=== PATIENT | male | born 1950 | race Caucasian/White ===

== ENCOUNTER 2022-05-01 08:38 | Emergency (ER) | payer MEDICARE, OTHER ==
[~2022-05-01] VITALS: Ht 188 cm; Wt 90.7 kg
[2022-05-01 11:03] LABS: Influenza A, PCR NEGATIVE (NEGATIVE); Influenza B, PCR NEGATIVE (NEGATIVE); Resp Syncytial Virus, PCR NEGATIVE (NEGATIVE)
[2022-05-01 11:05] LABS: SARS-Cov-2 (COVID-19) PCR, MMC POSITIVE (NEGATIVE)
== END 2022-05-01 11:40 | disposition home or self-care (01) ==
LOC: ER 08:38
PROVIDERS: Physician Assistant
DX: U07.1 COVID-19 (principal); J44.9 Chronic obstructive pulmonary disease, unspecified; F17.200 Nicotine dependence, unspecified, uncomplicated
CPT/HCPCS: 0241U; 71046

== ENCOUNTER 2024-08-19 11:11 | Inpatient (IN) | payer MEDICARE, OTHER ==
[~2024-08-19] VITALS: Ht 188 cm; Wt 73.3 kg
[2024-08-19] MEDS ORDERED: ALBUTEROL HFA 90 MCG (11:28)
[2024-08-19] MEDS ORDERED: ASPI81CH PO (11:28)
[2024-08-19 12:06] LABS: BASOPHILS ABSOLUTE AUTO 0.03 K/mm3 (0.00-0.23); BASOPHILS PERCENT AUTO 0 % (0-2); EOSINOPHILS ABSOLUTE AUTO 0.01 K/mm3 (0.00-0.68); EOSINOPHILS PERCENT AUTO 0 % (0-6); Hematocrit 47.5 % (37.0-53.0); Hemoglobin 16.5 g/dL (13.5-17.5); IMMATURE GRAN ABSOLUTE AUTO 0.14 K/mm3 (0.00-0.10); IMMATURE GRAN PERCENT AUTO 1 % (0-1); International Normalized Ratio 1.71; LYMPHOCYTES ABSOLUTE AUTO 0.29 K/mm3 (0.84-5.20); LYMPHOCYTES PERCENT AUTO 3 % (21-46); MONOCYTES ABSOLUTE AUTO 0.62 K/mm3 (0.16-1.47); MONOCYTES PERCENT AUTO 6 % (4-13); Mean Corpuscular HGB 32.4 pg (26.0-34.0); Mean Corpuscular HGB Conc 34.7 g/dL (31.5-36.5); Mean Corpuscular Volume 93 fL (80-100); NEUTROPHILS ABSOLUTE AUTO 9.46 K/mm3 (1.96-9.15); NEUTROPHILS PERCENT AUTO 90 % (41-73); Prothrombin Time Results 17.6 Sec (9.7-11.5); RDW Coefficient Variation 12.1 % (11.7-14.2); RDW Standard Deviation 41.7 fL (35.1-46.3); White Blood Cell Count 10.55 K/mm3 (4.00-11.30)
[2024-08-19 12:18] LABS: Albumin, Blood 3.5 g/dL (3.4-5.0); Albumin/Globulin Ratio 0.9 (0.8-1.8); Calcium, Blood 8.7 mg/dL (8.5-10.1); Creatinine, Blood 1.29 mg/dL (0.60-1.20); Globulin, Blood 3.9 g/dL (2.2-4.0); Potassium, Blood 5.8 mmol/L (3.5-5.5); Total Protein, Blood 7.4 g/dL (6.4-8.2)
[2024-08-19 12:30] LABS: Mean Platelet Volume 10.2 fL (9.1-12.4); Platelet Count 260 K/mm3 (150-400)
[2024-08-19] MEDS ORDERED: NS 1,000 ML IV SCH (12:55)
[2024-08-19] MEDS ORDERED: CefTRIAXone Sodium 1,000 MG in NS 100 ML IV ONE (12:55)
[2024-08-19] MEDS ORDERED: Azithromycin 500 MG in NS 250 ML IV ONE (12:55)
--- NOTE | 2024-08-19 15:35 | NUR ---
ASSUMPTION OF CARE PT ARRIVED TO ICU5, TRANSPORTED BY ED RN. REPORT GIVEN TO THIS RN VIA PHONE BY STEVE RAMOS. PT A&OX4, ABLE TO COMMUNICATE APPROPRIATELY AND MAKES NEEDS KNOWN. ON ARRIVAL TO ROOM, PT REQUESTED TO USE THE BATHROOM. PT AMBULATES WITH MINIMAL STAND-BY ASSIST TO ROOM TOILET. URINE NOTED TO BE PINK TINGED. PT HAS HX OF PROSTATE CA AND HAS KNOWN THIS FOR ABOUT 2YEARS, PER PRIOR RN. PT SBP 130S. HR 80S-100S, IRREGULAR, ACTIVITY DEPENDENT. DENIES CHEST PAIN. ENDORSES SOB. PT TRIPODING. LUNGS DIMINISHED T/O, ESPECIALLY IN LLL. CRACKLES HEARD IN BILAT LOWER LOBES. SATS LABILE, UNABLE TO GET GOOD READ DUE TO PTS COLD EXTREMITIES. NOSE NOTED TO BE PURPLE. PER PT, HE DOES NOT HAVE PRESCRIBED O2 AT HOME. HE USES HIS 'S CONCENTRATOR OCCASSIONALLY ON "VERY LITTLE" SETTINGS. SHALLOW BREATHING NOTED. LLE NOTED TO BE COLD TO THE TOUCH, LEFT FOOT BLUISH/PURPLE. PULSES HEARD VIA DOPPLER. NO PAIN REPORTED.
[2024-08-19] MEDS ORDERED: Albuterol 2.5 MG/3 ML VIAL INH PRN (15:45)
[2024-08-19 15:50] VITALS: BP 130/74
--- NOTE | 2024-08-19 15:58 | NUR ---
DR JACKSON IN ROOM ASSESSING PT.
[2024-08-19] MEDS ORDERED: NS 500 ML IV SCH (16:00)
[2024-08-19] MEDS ORDERED: FLU VACC TS2024-25(6MOS UP)/PF 45 MCG/0.5 ML SYRINGE IM ONE (16:00)
--- NOTE | 2024-08-19 16:30 | NUR ---
PT UPDATE: PT GETTING ECHO IN ROOM.
[2024-08-19] MEDS ORDERED: Mometasone/Formoterol MDI 200/5 mcg 13 GM INH SCH (16:45)
[2024-08-19] MEDS ORDERED: Albuterol HFA200 ACT/6.7 GM INH INH PRN (16:45)
[2024-08-19] MEDS ORDERED: Tiotropium Bromide 2.5 MCG/ACT MIST INHAL (10 ACT/4 GM) INH SCH (16:45)
[2024-08-19 17:21] VITALS: BP 134/76
--- NOTE | 2024-08-19 18:18 | NUR ---
PT TO CT FOR PE STUDY
[2024-08-19 18:38] VITALS: BP 134/70
--- NOTE | 2024-08-19 18:38 | NUR ---
PT BACK TO ICU [address] ESCORTED BY G[employer] [employer] WINDER
--- NOTE | 2024-08-19 18:49 | NUR ---
END OF SHIFT SUMMARY PT REMAINS A&OX4. APPEARS VERY SLEEPY. IN AND OUT OF SLEEP.AROUSES TO LOUD VOICE AND TOUCH. PT IS HARD OF HEARING. HR REMAINS 80S- LOW 100S, CONTINUES TO RISE W/ ACTIVITY. HR IRREG. SBP 130S. MAP 80S. PT ON 3L O2 VIA NC, SATS >90%. RESP 20S. LAST KNOWN BM PER PT WAS THIS MORNING. NO PAIN REPORTED THIS SHIFT. SCD ON RLE. PT AMBULATES TO TOILET W/STANDBY ASSIST. CALL LIGHT WITHIN REACH. WILL REPORT TO ONCOMING SHIFT.
[2024-08-19 19:55] LABS: Calcium, Blood 8.4 mg/dL (8.5-10.1); Creatinine, Blood 1.13 mg/dL (0.60-1.20); Potassium, Blood 5.3 mmol/L (3.5-5.5)
[2024-08-19 20:00] VITALS: BP 128/73
[2024-08-19 20:38] VITALS: BP 128/73
[2024-08-19 21:49] LABS: Base Excess Venous 5.5 mmol/L; Bicarbonate Venous 25.4 mmol/L (24.0-30.0); PCO2 Venous 81.8 mmHg (38-42); pH Blood Venous 7.22 (7.34-7.37)
[2024-08-19 22:14] LABS: Influenza A, PCR NEGATIVE (NEGATIVE); Influenza B, PCR NEGATIVE (NEGATIVE); Resp Syncytial Virus, PCR NEGATIVE (NEGATIVE); SARS-Cov-2 (COVID-19) PCR, MMC NEGATIVE (NEGATIVE)
[2024-08-19] MEDS ORDERED: LORazepam 2 MG/ML 1ML Injection IV ONE (22:35)
--- NOTE | 2024-08-19 22:52 | NUR ---
ASSUMPTION OF CARE ASSUMED CARE OF PATIENT AT 1900, BEDSIDE SHIFT REPORT RECEIVED FROM KAREN RN. PT RESTING IN BED, SLEEPING, DIFFICULT TO AROUSE. PT OPENS EYES WITH PHYSICAL STIMULATION. PT NODS/SHAKES HIS HEAD TO ANSWER QUESTIONS, DOES NOT RESPOND VERBALLY. PT MENTATION INCONSISTENT WITH REPORT RECEIVED FROM KAREN RN. PT MORE LETHARGIC, CONCERNS CALLED TO DR. BENSON REGARDING PT MENTATION, DR. BENSON TO THE BEDSIDE FOR ASSESSMENT, ORDERS RECEIVED FOR VBG AND COVID/FLU SWAB. CRITICAL RESULT RECEIVED FROM VBG, CALL PLACED TO REGARDING RESULTS, ORDER RECEIVED FOR BIPAP. PT NOT TOLERATING THE BIPAP, CONTINUOUSLY PULLING IT OFF AND BECOMING INCREASINGLY ANXIOUS, PT MEDICATED PER EMAR, NOW TOLERATING BIPAP MASK AT THIS TIME, BIPAP SETTINGS 14/8 35%, OXYGEN SATURATION >92%. PT MOVING EXTREMITIES EQUALLY BILATERALLY. HR 80-110'S IRREGULAR. MAP >65. ABDOMEN SOFT, BOWEL TONES ACTIVE THROUGHOUT. PT USES URINAL TO VOID, DARK JOSE MARTIN/PINK TINGED URINE. PIV IN PLACE TO LEFT WRIST SL, PT PULLED IV IN RIGHT FOREARM. BED IN LOWEST POSITION, CALL LIGHT WITHIN REACH, CARE CONTINUES.
[2024-08-20 00:11] VITALS: BP 124/71
[2024-08-20 03:26] VITALS: BP 123/78
[2024-08-20 03:32] LABS: Base Excess Venous 7.2 mmol/L; Bicarbonate Venous 26.4 mmol/L (24.0-30.0); PCO2 Venous 76.2 mmHg (38-42); pH Blood Venous 7.26 (7.34-7.37)
[2024-08-20 03:52] LABS: BASOPHILS ABSOLUTE AUTO 0.03 K/mm3 (0.00-0.23); BASOPHILS PERCENT AUTO 0 % (0-2); EOSINOPHILS ABSOLUTE AUTO 0.01 K/mm3 (0.00-0.68); EOSINOPHILS PERCENT AUTO 0 % (0-6); Hematocrit 48.1 % (37.0-53.0); Hemoglobin 16.2 g/dL (13.5-17.5); IMMATURE GRAN ABSOLUTE AUTO 0.19 K/mm3 (0.00-0.10); IMMATURE GRAN PERCENT AUTO 1 % (0-1); LYMPHOCYTES ABSOLUTE AUTO 0.96 K/mm3 (0.84-5.20); LYMPHOCYTES PERCENT AUTO 7 % (21-46); MONOCYTES ABSOLUTE AUTO 0.84 K/mm3 (0.16-1.47); MONOCYTES PERCENT AUTO 6 % (4-13); Mean Corpuscular HGB 32.4 pg (26.0-34.0); Mean Corpuscular HGB Conc 33.7 g/dL (31.5-36.5); Mean Corpuscular Volume 96 fL (80-100); Mean Platelet Volume 9.8 fL (9.1-12.4); NEUTROPHILS ABSOLUTE AUTO 12.16 K/mm3 (1.96-9.15); NEUTROPHILS PERCENT AUTO 86 % (41-73); Platelet Count 284 K/mm3 (150-400); RDW Coefficient Variation 12.4 % (11.7-14.2); RDW Standard Deviation 44.1 fL (35.1-46.3); White Blood Cell Count 14.19 K/mm3 (4.00-11.30)
[2024-08-20 04:31] LABS: Albumin, Blood 3.3 g/dL (3.4-5.0); Albumin/Globulin Ratio 0.9 (0.8-1.8); Bilirubin, Total 1.1 mg/dL (0.1-1.0); Bun/Creatinine Ratio 27.7 (12.0-20.0); Calcium, Blood 8.3 mg/dL (8.5-10.1); Creatinine, Blood 1.3 mg/dL (0.60-1.20); Globulin, Blood 3.6 g/dL (2.2-4.0); Potassium, Blood 5.7 mmol/L (3.5-5.5); Total Protein, Blood 6.9 g/dL (6.4-8.2)
--- NOTE | 2024-08-20 05:03 | NUR ---
SHIFT SUMMARY PT CONTINUES TO REST IN BED, SLEEPING, OPENS EYES TO VERBAL STIMULI. PT MOVES EXTREMITIES EQUALLY BILATERALLY. HR 80-110'S, MAP >65. PT ON BIPAP 14/8 35%, OXYGEN SATURATION >92%. ABDOMEN SOFT, BOWEL TONES ACTIVE THROUGHOUT. PIV IN PLACE TO LFA SL. BED IN LOWEST POSITION, CALL LIGHT WITHIN REACH, CARE CONTINUES.
[2024-08-20] MEDS ORDERED: Furosemide 10 MG/ML 4ML Vial IV ONE (07:00)
[2024-08-20 08:00] VITALS: BP 115/69
[2024-08-20] MEDS ORDERED: Enoxaparin 30 MG/0.3 ML SYR SC SCH (09:00)
--- NOTE | 2024-08-20 10:00 | NUR ---
AM NOTE... ASSUMED CARE OF PT AT 0700, PT IS A&Ox4 SBA TO THE BSC. PT WAS ON BIPAP AT 14/8 AND 35% WITH O2 SATS>95% L/S VERY DIM AND COARSE T/O. PT WAS CHANGED FROM BIPAP TO NC AT 6L WITH O2 SATS>90%. THE BIPAP WAS REMOVED PER PT REQUEST TO GET TO THE BSC, PT IS CURRENTLY REFUSING TO PUT THE BIPAP BACK ON. PT EDUCATED ON THE WHY THE PT WAS ON THE BIPAP AND HOW THE BIPAP IS HELPING HIM GET BETTER. PT VERBALIZED HIS UNDERSTANDING BUT STILL REFUSED. PT IS IN SA IN THE 100'S-110'S. BP IS STABLE MAPS>65. PT'S LLE HAS 2+ EDEMA PULSES ARE PALPABLE. PT DENEIS PAIN DURING THIS ASSESSMENT.
[2024-08-20 10:04] LABS: Bun/Creatinine Ratio 30.1 (12.0-20.0); Calcium, Blood 8.4 mg/dL (8.5-10.1); Creatinine, Blood 1.23 mg/dL (0.60-1.20); Potassium, Blood 5.2 mmol/L (3.5-5.5)
[2024-08-20] MEDS ORDERED: Ipratropium/Albuterol SulF 2.5-0.5MG/3 ML Amp INH SCH (10:20)
[2024-08-20] MEDS ORDERED: MethylPREDNISolone Sod Succ 125 MG Vial IV ONE (11:00)
[2024-08-20 13:13] VITALS: BP 120/100
[2024-08-20] MEDS ORDERED: CefTRIAXone Sodium 1,000 MG in NS 100 ML IV SCH (14:00)
[2024-08-20] MEDS ORDERED: Azithromycin 500 MG in NS 250 ML IV SCH (14:00)
[2024-08-20] MEDS ORDERED: Furosemide 10 MG / ML 2ML Vial IV SCH (14:04)
[2024-08-20] MEDS ORDERED: NS 250 ML IV PRN (14:15)
--- NOTE | 2024-08-20 14:37 | NUR ---
SPOKE WITH PT'S SHER AND JOSE HORNE BY PHONE TODAY. SHER REQUESTS WE DISCUSS PT'S CONDITION WITH OZZIE WHO IS A NURSE AND STATES OZZIE WILL BE THE SPOKESPERSON. AFTER SPEAKING WITH PT'S AND KIDS, THEY COLLECTIVELY DECIDED TO CHANGE PT'S CODE STATUS TO DNR, HE HAS MADE CLEAR TO FAMILY THAT HE WOULD NOT WANT HEROIC MEASURES. SPOKE AT LENGTH WITH OZZIE REGARDING PT'S INCREASED CONFUSION, PULLING ON BIPAP MASK, AND NOW REQUIRING A PERICARDIAL EFFUSION DRAIN PLACED. ULTIMATELY, FAMILY AGREE THAT IF THE PATIENT'S CONDITION DECLINES TO ANY POINT THAT HE WOULD NEED TO BE INTUBATED, THEY WOULD AT THAT TIME CHANGE PT TO COMFORT CARE AND/OR HOSPICE. HOSPITALIST NOTIFIED, SHE WILL CHANGE CODE STATUS.
[2024-08-20 14:47] LABS: C-REACTIVE PROTEIN, EXT RANGE 4.09 mg/dL (0.000-0.300)
[2024-08-20 14:56] LABS: PCO2 Venous 85.7 mmHg (38-42); pH Blood Venous 7.27 (7.34-7.37)
[2024-08-20 14:58] LABS: C-Reactive Protein, High Sens. 39.6 mg/dL (0.000-3.000)
[2024-08-20 14:58] LABS: Base Excess Venous 12.9 mmol/L; Bicarbonate Venous 32.1 mmol/L (24.0-30.0)
--- NOTE | 2024-08-20 15:45 | NUR ---
PT UPDATE.... PT HAS HAD INCREASED LETHARGY AND SOMNOLENCE T/O THE SHIFT, AT 1500 A VBG WAS DRAWN THAT SHOWED A pH OF 7.27 AND pCO2 OF 85.7, AT 1530 PROVIDER WAS CALLED AND ORDERS FOR ATIVAN TO BE GIVEN FOR BIPAP COMPLIANCE WERE OBTAINED. AT 1540 PT WAS PLACED BACK ON BIPAP, PT WAS GIVEN 0.5MG IV ATIVAN IN ORDER TO TOLERATE THE BIPAP. BIPAP SETTINGS: 14/8 AND 35%.
[2024-08-20] MEDS ORDERED: LORazepam 2 MG/ML 1ML Injection IV PRN (16:00)
[2024-08-20] MEDS ORDERED: LORazepam 2 MG/ML 1ML Injection IV ONE (16:00)
[2024-08-20 16:02] VITALS: BP 111/79
--- NOTE | 2024-08-20 17:19 | NUR ---
SHIFT SUMMARY... PT WAS PLACED BACK ON THE BIPAP AND SETTINGS WERE CHANGED BY RT TO 16/8 AND 35% WITH O2 SATS>88%. L/S CONTINUE TO BE VERY DIM T/O. PT DOES WELL ON THE BIPAP WITH 0.5MG IV ATIVAN. A CONDOM CATH WAS PLACED. PT'S SON DIVINA WAS UPDATED ON THE PT'S CONDITON AND PLAN OF CARE. PT WAS CHANGED FROM A FULL CODE TO A DNR.
[2024-08-20] MEDS ORDERED: MethylPREDNISolone Sod Succ 125 MG Vial IV SCH (18:00)
[2024-08-20 20:00] VITALS: BP 103/73
[2024-08-21] VITALS (21 sets, daily range): BP systolic 88–132; BP diastolic 43–83
[2024-08-21] MEDS ORDERED: dexmedeTOMIDine 100 ML IV SCH (00:40)
[2024-08-21 03:28] LABS: Base Excess Venous 11.4 mmol/L; Bicarbonate Venous 32.3 mmol/L (24.0-30.0); PCO2 Venous 63.8 mmHg (38-42); pH Blood Venous 7.37 (7.34-7.37)
[2024-08-21 03:32] LABS: BASOPHILS ABSOLUTE AUTO 0.01 K/mm3 (0.00-0.23); BASOPHILS PERCENT AUTO 0 % (0-2); EOSINOPHILS PERCENT AUTO 0 % (0-6); Hemoglobin 15.2 g/dL (13.5-17.5); IMMATURE GRAN ABSOLUTE AUTO 0.05 K/mm3 (0.00-0.10); IMMATURE GRAN PERCENT AUTO 1 % (0-1); LYMPHOCYTES ABSOLUTE AUTO 0.22 K/mm3 (0.84-5.20); LYMPHOCYTES PERCENT AUTO 3 % (21-46); MONOCYTES ABSOLUTE AUTO 0.22 K/mm3 (0.16-1.47); MONOCYTES PERCENT AUTO 3 % (4-13); Mean Corpuscular HGB 31.9 pg (26.0-34.0); Mean Corpuscular Volume 96 fL (80-100); Mean Platelet Volume 9.7 fL (9.1-12.4); NEUTROPHILS ABSOLUTE AUTO 8.19 K/mm3 (1.96-9.15); NEUTROPHILS PERCENT AUTO 94 % (41-73); Platelet Count 284 K/mm3 (150-400); RDW Coefficient Variation 12.3 % (11.7-14.2); RDW Standard Deviation 43.9 fL (35.1-46.3); Red Blood Cell Count 4.77 M/mm3 (4.30-5.90); White Blood Cell Count 8.69 K/mm3 (4.00-11.30)
[2024-08-21 04:03] LABS: Albumin, Blood 3.1 g/dL (3.4-5.0); Bun/Creatinine Ratio 44.5 (12.0-20.0); Calcium, Blood 8.2 mg/dL (8.5-10.1); Creatinine, Blood 0.92 mg/dL (0.60-1.20); Globulin, Blood 3.2 g/dL (2.2-4.0); Potassium, Blood 5.2 mmol/L (3.5-5.5); Total Protein, Blood 6.3 g/dL (6.4-8.2)
[2024-08-21 05:14] LABS: Magnesium, Blood 2.7 mg/dL (1.6-2.4)
--- NOTE | 2024-08-21 06:18 | NUR ---
SHIFT SUMMARY: PT WAS FAIRLY SOMNOLENT AT THE BEGINNING OF SHIFT AND WEARING BIPAP. WHEN ATIVAN WORE OFF HE BECAME AGITATED AND WAS NO LONGER TOLERATING BIPAP. PT DESATURATES QUICKLY WHEN OFF BIPAP. PRECEDEX WAS STARTED AND PATIENT WAS ABLE TO TOLERATE BIPAP FOR REST OF SHIFT. HE ALSO SEEMED TO SLEEP FOR SEVERAL HOURS. IN SINUS ARRHYTHMIA WITH A STABLE BLOOD PRESSURE. PT HAS BEEN NPO ALL SHIFT, MAG AND POTASSIUM WITHIN RANGE PER DR BROWER FOR PROCEDURE TODAY.
[2024-08-21] MEDS ORDERED: Thiamine HCl 100 MG Tab PO SCH (09:00)
--- NOTE | 2024-08-21 10:00 | NUR ---
REQUESTED A BREAK FROM BIPAP. PT PLACED ON 4LPM VIA NASAL CANNULA SATS REMAIN ABOVE 95% DENIES SOB OR PAIN AT THIS TIME. C/O DRY MOUTH, ORAL CARE PROVIDED. PT REMAINS NPO IN ANTICIPATION FOR HEART CATH AND PERICARDIALCENTESIS TODAY. PROVIDED SHER AN UPDATE THIS MORNING. MENTATION IMPROVED SINCE 0800. ALERT AND ORIENTED TO SELF AND PLACE. HAD BEEN TOLERATED BIPAP WELL ON 0.3MCG/KG/HR PRECEDEX.
--- NOTE | 2024-08-21 12:52 | NUR ---
PATIENT PLACED BACK ON BIPAP, RR INCREASED FROM 16-17 TO 21-22 WHILE ON NASAL CANNULA SPO2 REMAINED ABOVE 95% HR 59-60S. REDUCED PRECEDEX TO 0.2MCG/KG/HR.
--- NOTE | 2024-08-21 13:39 | NUR ---
SPOKE WITH PT'S JOSE HORNE BY PHONE THIS MORNING. UPDATED HER ON PT'S CONDITION AND PENDING PROCEDURES. SHE STATES THE PT'S SON JOSEFA IS TRAVELING TO COME AND SEE HIS DAD, SHOULD BE ARRIVING THIS EVENING. THE FAMILY ARE LEANING TOWARDS HOSPICE, BUT FOR NOW WANT TO CONTINUE OPTIMIZING THE PATIENT.
--- NOTE | 2024-08-21 14:59 | NUR ---
PATIENT OFF BIPAP ON 4LPM VIA NC FOR APPROX 20MIN. TOOK A COUPLE SIPS OF WATER TOLERATED WELL. RR INCREASED DURING THIS TIME AND PATIENT BECAME SOB. C/O PAIN WHEN COUGHING TO LL [place] REPORTED SOME MINIMAL HEAVINESS TO HIS CHEST BUT DENIED ANY CHEST PAIN. SBP REMAINS 90-100S, MAP GREATER THAN 65. SPO2 REMAINS ABOVE 95%. FAMILY UPDATED
--- NOTE | 2024-08-21 16:53 | NUR ---
SHIFT SUMMARY PATIENT AROUSES TO VERBAL STIMULI, ORIENTED TO SELF AND OCCASIONALLY PLACE. CURRENTLY ON PRECEDEX 0.2MCG/KG/HR. FOLLOWS COMMANDS. PLESANTLY CONFUSED AND FORGETFUL. SINUS ARRYTHMIA WITH FREQUENT PACS. SBP 90-110S, MAP >65 HR 60S. LUNGS: COARSE/DIM ON RML,RLL. ON BIPAP 16/8 35% TOLERATING WELL. SATS REMAIN >95% +COUGH, NON PRODUCTIVE. GI: ABDOMEN IS SOFT/NONTENDER WITH NORMOACTIVE BOWEL TONES : URINARY RETENTION, STRAIGHT CATH COMPLETED. MOVE EXTREMITIES WELL. PATIENT TOOK 3 BREAKS FROM BIPAP. 20-60MIN FOR EACH EVENT PT BECAME TACHYNPENIC AND BIPAP WAS RESTARTED. SPOKE WITH QUITE A FEW FAMILY MEMBERS TODAY. SON DIVINA SHOULD BE HERE THIS EVENING TO VISIT HE IS TRAVELING FROM [place]. FAMILY AGREEABLE TO HAVE DAUGHTER IN [employer] POINT PERSON TO NOTIFY FOR UPDATES AND SHE WILL NOTIFY OTHER MEMEBERS OF THE FAMILY
[2024-08-21] MEDS ORDERED: Lactobacil 2-S.Thermo-Bifido 1 1 Cap PO SCH (21:00)
[2024-08-22] VITALS (11 sets, daily range): BP systolic 96–142; BP diastolic 63–86
[2024-08-22 03:20] LABS: PCO2 Venous 56.3 mmHg (38-42); pH Blood Venous 7.42 (7.34-7.37)
[2024-08-22 03:21] LABS: Base Excess Venous 12.3 mmol/L; Bicarbonate Venous 33.7 mmol/L (24.0-30.0)
[2024-08-22 03:39] LABS: BASOPHILS ABSOLUTE AUTO 0.01 K/mm3 (0.00-0.23); BASOPHILS PERCENT AUTO 0 % (0-2); EOSINOPHILS PERCENT AUTO 0 % (0-6); Hematocrit 44.2 % (37.0-53.0); Hemoglobin 14.7 g/dL (13.5-17.5); IMMATURE GRAN ABSOLUTE AUTO 0.12 K/mm3 (0.00-0.10); IMMATURE GRAN PERCENT AUTO 1 % (0-1); LYMPHOCYTES ABSOLUTE AUTO 0.28 K/mm3 (0.84-5.20); LYMPHOCYTES PERCENT AUTO 2 % (21-46); MONOCYTES ABSOLUTE AUTO 0.33 K/mm3 (0.16-1.47); MONOCYTES PERCENT AUTO 3 % (4-13); Mean Corpuscular HGB 32.5 pg (26.0-34.0); Mean Corpuscular HGB Conc 33.3 g/dL (31.5-36.5); Mean Corpuscular Volume 98 fL (80-100); Mean Platelet Volume 9.7 fL (9.1-12.4); NEUTROPHILS ABSOLUTE AUTO 12.19 K/mm3 (1.96-9.15); NEUTROPHILS PERCENT AUTO 94 % (41-73); Platelet Count 256 K/mm3 (150-400); RDW Coefficient Variation 12.4 % (11.7-14.2); RDW Standard Deviation 44.9 fL (35.1-46.3); Red Blood Cell Count 4.52 M/mm3 (4.30-5.90); White Blood Cell Count 12.93 K/mm3 (4.00-11.30)
[2024-08-22 03:55] LABS: Bun/Creatinine Ratio 54.7 (12.0-20.0); Calcium, Blood 8.3 mg/dL (8.5-10.1); Creatinine, Blood 0.9 mg/dL (0.60-1.20); Potassium, Blood 5.3 mmol/L (3.5-5.5)
--- NOTE | 2024-08-22 05:41 | NUR ---
SHIFT SUMMARY: PT HAS BEEN MORE ALERT AND TALKATIVE THIS SHIFT, THOUGH HE REQUIRES FREQUENT REPETITION AND RE-ORIENTING. HE HAS ALSO BEEN MORE IRRITABLE. HE HAS NOT WORN THE BIPAP CONSISTENTLY, BUT HAS MANAGED A FEW STRETCHES OF TIME WITH IT ON. HIS VITALS REMAIN STABLE WITH A FEW EPISODES OF BRADYCARDIA. HE HAS BEEN ON PRECEDEX GTT. HIS SON ARRIVED FROM [place] THIS EVENING AND WILL RETURN WITH THE PATIENT'S IN THE AM.
--- NOTE | 2024-08-22 07:00 | NUR ---
ASSUMPTION OF CARE PT IS AWAKE DURING BEDSIDE REPORT. HE REQUESTS BIPAP MASK TO BE TAKEN OFF AND WATER. BIPAP MASK REMOVED AND PT PLACED ON 4L NC. SPO2 90-94%. HE DENIES SOB. APPEARS TO MOSTLY BREATHING THROUGH HIS MOUTH AND STS HE NORMALLY WEARS HIS HOME O2 IN HIS MOUTH. NEW CANNULA APPLIED AND PLACED IN MOUTH. SPO2 REMAINS 90-94%. IRREGULAR RHYTHM ON MONITOR WITH RATE IN 80S. MAP >65. AFEBRILE. BED IN LOW POSITION, CALL LIGHT WITHIN REACH.
--- NOTE | 2024-08-22 09:57 | NUR ---
UPDATE PROVIDERS HAVE ROUNDED. PER PT AND FAMILY CONVERSATION WITH PROVIDER, MAIN GOAL OF CARE INCLUDES MAINTAINING COMFORT. PT'S SON CURRENTLY AT BEDSIDE VISITING. PT HAS BREAKFAST TRAY.
--- NOTE | 2024-08-22 15:15 | NUR ---
UPDATE PT CHANGED TO MEDICAL STATUS THIS AM. PT BECOMES DYSPNEIC WITH EXERTION AND REQUESTS HIS INHALER. HE STS AT HOME HE USES HIS INHALER PRIOR TO ACTIVITY AND OFTEN AGAIN AFTER. HE IS CURRENTLY ON 6L NC. PROVIDER NOTIFIED AND PLACING ORDERS.
[2024-08-22] MEDS ORDERED: LORazepam 2 MG/ML 1ML Injection IV PRN (15:20)
[2024-08-22] MEDS ORDERED: Morphine Sulfate 20 MG/1ML 1 ML Oral Syringe SL PRN (15:20)
--- NOTE | 2024-08-22 17:50 | NUR ---
SHIFT SUMMARY PT TRANSITIONED TO MEDICAL STATUS AND COMFORT CARE THIS SHIFT. HE IS ON 4L NC. HE BECOMES DYSPNEIC WITH EXERTION. ROXANOL ADDED THIS EVENING AND PT REPORTS RELIEF OF AIR HUNGER. PT IS ALERT TO SELF AND FAMILY. HE HAS VOIDED SEVERAL TIMES THIS SHIFT. HE HAS A DECREASED APPETITE BUT HAS ATE SMALL PORTIONS OF EACH MEAL. BED IN LOW POSITION, CALL LIGHT WITHIN REACH.
--- NOTE | 2024-08-22 18:45 | NUR ---
Respiratory therapist notified this RN that the patient and family were requesting for patient to be a full code. This RN entered room to assess. Family stated that the patient was requesting full code status. Pt's son at bedside with video chat with another family member. Discussed that the plan was to discharge to hospice, which everyone emphatically agreed. Discussed incompatiablity between hospice and full code status. Discussed that part of comfort measures was providing patient with morphine for his air hunger and reported pain. Discussed decision-making impairments with morphine. Family stated that pt became upset when he saw the DNR wristband in place and this provoked this change. Wristband removed, which family stated was a satisfactory solution. Family agreeable to continue with comfort measures and eventual discharge to hospice. Discussed this interaction with primary nurse, Suzi, who stated it is most appropriate for family to continue with decision making. Also provided update to Dr Brooks who presented to the room shortly afterwards. Patient and family deny questions and express satifaction with current plan of care.
--- NOTE | 2024-08-23 07:00 | NUR ---
ASSUMPTION OF CARE PT SITTING UP IN BED. COMFORT CARE AT THIS TIME.
--- NOTE | 2024-08-23 09:39 | NUR ---
UPDATE PT SITTING UP IN RECLINER CURRENTLY. HE HAS A DECREASED APPETITE BUT ATTEMPTED TO EAT SOME OF BREAKFAST. HE IS TOLERATING FLUIDS WELL. PT HAS VOIDED MULTIPLE TIMES THIS SHIFT. CALL LIGHT WITHIN REACH.
[2024-08-23] MEDS ORDERED: CefTRIAXone 1000 MG Vial ONE (12:59)
--- NOTE | 2024-08-23 14:58 | NUR ---
TRANSFER TO 364 PT TRANSFERRED TO 364 VIA WHEELCHAIR BY PCT. HE IS ON 4L NC. ALL BELONGINGS WITH PT INCLUDING PHONE AND GLASSES. SON JOSEFA NOTIFIED OF ROOM CHANGE VIA TELEPHONE.
--- NOTE | 2024-08-23 15:20 | NUR ---
TRANSFER TO 363 FROM ICU5 PT TRANSFERED TO 363. ORIENTED TO ROOM. CALL LIGHT IN REACH. 5L O2 VIA [place] RUNNING. PT SATS HE IS NOT SOB CURRENTLY AND REFUSED ROXANOL. ICE WATER PROVIDED. DENIES OTHER NEEDS AT THIS TIME.
--- NOTE | 2024-08-23 18:14 | NUR ---
SHIFT SUMMARY PT TRANSFERED TO UNIT. MEDICATED WITH ROXANOL ONCE. PT UP IN BED, EATING DINNER. SON AT BEDSIDE. DNR WRISTBAND OUTSIDE ROOM SEEING THEM UPSETS THE PATIENT. NO OTHER ACUTE CHANGES AT THIS TIME. PT DENIES PAIN AND DENIES NEED FOR MORE ROXANOL AT THIS TIME.
--- NOTE | 2024-08-24 04:11 | NUR ---
SHIFT SUMMARY PT ALERT ORIENTED TO SELF ONLY. HE USES THE URINL AT BEDSIDE. REMAINS ON COMFORT CARE. VSS ON HES HERE TILL HE CAN BE DISCHARGED TO THE [facility]. NO C/O PAIN THIS SHIFT BUT HE DID HAVE SOME AIRHUNGER AND NEEDED A DOSE OF OXANOL. RESTING IN BED AT THIS TIME WITH A CALL LIGHT IN [facility]
--- NOTE | 2024-08-24 15:29 | NUR ---
PATIENT SITTING UP IN BED TODAY, WEARING 02 VIA N/C AND DOES NOT APPEAR DISTRESSED. HE IS ON COMFORT CARE, AND PLAN IS FOR PATIENT TO D/C WITH HOSPICE TO EITHER THE [facility] AT [facility], OR ONE OF THE OTHER LONG-TERM CARE FACILITIES WHO CONTRACT WITH THE [place]. THE PATIENT IS AGREEABLE TO THIS, IS FAMILY. PT'S SON JOSEFA WAS AT PT'S BEDSIDE FOR THE MAJORITY OF THE DAY. REFERRALS BEING SENT TO FACILITIES. NO NEW ISSUES IDENTIFIED AT THIS TIME.
--- NOTE | 2024-08-24 16:39 | NUR ---
PATIENT A/OX2-3, CONFUSED ABOUT SITUTATION AND FORGETFUL. PATIENT UP WITH FWW AND 1PA, FALL PRECAUTIONS IN PLACE PATIENT IS VERY IMPULSIVE. POOR APETITE, BUT DRINKING WELL. SON AT BEDSIDE TODAY AND SPOKE WITH PALLIATIVE CARE. PLAN IS FOR PLACEMENT FOR HOPSICE CARE. PATIENT DENIED ANY PAIN OR DISCOMFORT. 4LO2 FOR COMFORT. NO NEW CONCERNS THIS SHIFT.
--- NOTE | 2024-08-25 03:38 | NUR ---
SHIFT SUMMARY/COMFORT CARE NOTE NO ACUTE EVENTS DURING THIS SHIFT. PT IS A/O X2, ABLE TO MAKE HIS NEEDS KNOWN AND COOPERATIVE WITH CARE. PT SITTING IN BED, HOB ELEVATED. PT HOLDING URINAL BETWEEN HIS LEGS MOST OF THIS SHIFT. OCCASIONALLY ABLE TO VOID. IMPULSIVNESS, UP FROM THE BED, REDIRECTABLE. BED ALARM FOR SAFETY. NC @ 4LITERS FOR COMFORT. PT DENIES PAIN AND DISCOMFORT. BED AT THE LOWEST POSITION, CALL LIGHT W/I REACH. FREQUENT CHECKS BY THE BEDSIDE. PT AWAKE MOST OF THIS SHIFT.
[2024-08-25] MEDS ORDERED: Furosemide 20 MG Tab PO SCH (09:00)
--- NOTE | 2024-08-25 18:49 | NUR ---
NO ACUTE CHANGES THIS SHIFT. PATIENT UP WITH FWW AND 1PA. ON COMFORT CARE, DENIES ANY PAIN OR DISCOMFORT. FALL PRECAUTIONS IN PLACE. A/OX3 THIS SHIFT, PATIENT LESS IMPULSIVE TODAY. AWAITING HOSPICE PLACEMENT AT [place], REFERRAL HAS BEEN SENT.
--- NOTE | 2024-08-26 05:59 | NUR ---
SHIFT SUMMARY NOC PT A/O X 3-4. PLEASANT AND COOPERATIVE WITH CARE. ON COMFORT CARE MEASURES. PT HAS DENIED ANY PAIN. ON 4L/NC WHICH IS NEW BASELINED DUE TO RESPIRATORY FAILURE. PT USING CALL LIGHT APPROPRIATELY AND AMBULATING WITH 1PA/FWW TO BATHROOM. PT WAITING FOR ACCEPTENCE FOR [facility]. PT CURRENTLY RESTING WITH BED ALARM ON, BED IN LOWEST POSITION, AND CALL LIGHT WITHIN REACH.
--- NOTE | 2024-08-26 17:49 | NUR ---
SHIFT SUMMARY PATIENT A/OX4, ABLE TO MAKE NEEDS KNOWN. PLEASANT AND COOPERATIVE WITH CARE. PATIENT DENIES PAIN THIS SHIFT. CONTINUES WITH 4 LPM OCXYGEN USE VIA NASAL CANNULA. ABLE TO AMBULATE TO THE BATHROOM WITH STAND BY ASSISTANCE. DRESSING TO IV CHANGED TODAY. MULTIPLE FAMILY MEMBERS AT BEDSIDE THROUGHOUT THE DAY. NO OTHER CONCERNS AT THIS TIME. PATIENT AWAITING [place] [facility] PLACEMENT.
[2024-08-26] MEDS ORDERED: Ondansetron HCl 2 MG / ML 2ML Vial IV PRN (19:40)
--- NOTE | 2024-08-27 05:12 | NUR ---
AAOX4, USES CALL LIGHT FOR NEEDS. 3-4 L O2 VIA NC. CONT/INCT., USES URINAL IN BED OR AMBULATES TO BR WITH ASISST X1 WITH WALKER. C/O NAUSEA WITH MEALS, REC'D IV 4M ZOFRAN PRN Q6. PLAN IS [facility]. NO ACUTE NEEDS OVERNIGHT, DENIES PAIN.
--- NOTE | 2024-08-27 09:00 | NUR ---
pt laying in bed awake a/ox4, pleasant and cooperative with care, follows commands well, denies pain at this time, lots of family in room, lungs are dim t/o, resp even and unlabored, no cough noted at this time, hrr, trace edema noted to b/l le, ppp+1, cap refill <3 sec, vs stable, afebrile, btx4, abd flat soft nontender, voids without diff, skin c/w/d, with scattered bruising, ambulates to bathroom with walker, kelly, call light in reach.
[2024-08-27] MEDS ORDERED: FURO20 PO (12:18)
[2024-08-27] MEDS ORDERED: ALBU2.5V5 INH (12:18)
[2024-08-27] MEDS ORDERED: ONDA4ODT MM (12:20)
[2024-08-27] MEDS ORDERED: B-1100 M1 PO (12:20)
[2024-08-27] MEDS ORDERED: DULERA 200 MCG-13 GM INH (12:20)
[2024-08-27] MEDS ORDERED: SPIRIVA RESPIMAT4 G3 INH (12:21)
--- NOTE | 2024-08-27 15:21 | NUR ---
pt has been discharged to home on hospice, family at bedside, went over instructions with his son, new meds faxed to [facility], iv removed intact, left via wheelchair with travel registered nurse nicu and family in attendence with all belongings.
== END 2024-08-27 15:33 | disposition hospice, home (50) | DRG 193 ==
LOC: ER 11:11 → ICUE 13:43 → MEDS 13:43 → ERHOLD 13:43 → ICUE 14:36 → MEDS 08-23 15:10
PROVIDERS: Emergency Medicine; Internal Medicine; Student in an Organized Health Care Education/Training Program; ADMIT Hospitalist
PROC: 5A09457 Assistance with Respiratory Ventilation, 24-96 Consecutive Hours, Continuous Positive Airway Pressure (ICD-10-PCS; principal; 2024-08-19)
DX: J18.9 Pneumonia, unspecified organism (principal); I50.31 Acute diastolic (congestive) heart failure; J96.21 Acute and chronic respiratory failure with hypoxia; K72.00 Acute and subacute hepatic failure without coma; J96.22 Acute and chronic respiratory failure with hypercapnia; J44.1 Chronic obstructive pulmonary disease with (acute) exacerbation; N17.9 Acute kidney failure, unspecified; E87.29 Other acidosis; I31.39 Other pericardial effusion (noninflammatory); J44.0 Chronic obstructive pulmonary disease with (acute) lower respiratory infection; R64 Cachexia; Z66 Do not resuscitate; Z51.5 Encounter for palliative care; F17.210 Nicotine dependence, cigarettes, uncomplicated; E87.5 Hyperkalemia; E87.8 Other disorders of electrolyte and fluid balance, not elsewhere classified; R74.01 Elevation of levels of liver transaminase levels; M79.89 Other specified soft tissue disorders; Z53.29 Procedure and treatment not carried out because of patient's decision for other reasons; J43.9 Emphysema, unspecified; F03.A0 Unspecified dementia, mild, without behavioral disturbance, psychotic disturbance, mood disturbance, and anxiety; K80.20 Calculus of gallbladder without cholecystitis without obstruction; Z79.82 Long term (current) use of aspirin; Z79.51 Long term (current) use of inhaled steroids; Z85.46 Personal history of malignant neoplasm of prostate; Z99.81 Dependence on supplemental oxygen; Z28.21 Immunization not carried out because of patient refusal; Z68.24 Body mass index [BMI] 24.0-24.9, adult
CPT/HCPCS: 0241U; 36415; 51701; 71045; 71260; 76705; 80048; 80053; 82803; 82947; 83735; 83880; 84132; 85025; 85610; 85651; 85730; 86140; 86141; 93005; 93010; 93306; 93926; 93971; 94640; 94660; 94664; 94760; 94762; 96365; 97110; 97116; 97162; 97165; 99285-25; A9270; J0456; J0696; J1650; J1940; J2060; J2405; J2919; J7030; J7040; J7050; Q9967